=== PATIENT | female | born 1985 | race Caucasian/White ===

== ENCOUNTER 2020-10-15 11:54 | Emergency (ER) | payer SELFPAY ==
[~2020-10-15] VITALS: Ht 160 cm; Wt 74.8 kg
[2020-10-15] MEDS: ONDANSETRON HCL INJ 2MG/ML 2ML 2 MG/ML VIAL IV STA (13:08)
[2020-10-15] MEDS: SODIUM CHLORIDE 0.9% 1000ML 1,000 ML IV STA (13:08)
[2020-10-15] MEDS ORDERED: SODIUM CHLORIDE 0.9% 1000ML 1,000 ML ONE (13:09)
[2020-10-15] MEDS ORDERED: DICYCLOMINE HCL10 MG PO (14:18)
[2020-10-15] MEDS ORDERED: ONDANSETRON ODT4 MG PO (14:18)
== END 2020-10-15 14:46 | disposition home or self-care (01) ==
LOC: FSED 12:47
DX: K52.9 Noninfective gastroenteritis and colitis, unspecified (principal)
CPT/HCPCS: 74176; 80048; 80076; 81003; 81025; 85025; 99284; J2405; J7030